=== PATIENT | female | born 1990 | race Caucasian/White ===

== ENCOUNTER 2021-07-14 22:59 | Emergency (ER) | payer OTHER ==
[~2021-07-14] VITALS: Ht 175.3 cm; Wt 65.8 kg
--- NOTE | 2021-07-14 23:10 | NUR ---
Dr. Arreola at bedside for MSE
[2021-07-14] MEDS ORDERED: NAPR-1164 PO (23:21)
--- NOTE | 2021-07-14 23:26 | NUR ---
Patient discharged to home in stable condition. Written and verbal after care instructions given. Patient verbalizes understanding of instructions. Stressed follow up or return to ER for worsening s/s. pt ambulated with steady gait. no sob. no chest pain.
[2021-07-14 23:29] VITALS: BP 120/70
== END 2021-07-14 23:29 | disposition home or self-care (01) ==
LOC: ER 23:09
DX: K04.7 Periapical abscess without sinus (principal)
CPT/HCPCS: A4663

== ENCOUNTER 2021-11-22 08:49 | Emergency (ER) | payer SELFPAY ==
[~2021-11-22] VITALS: Ht 175.3 cm; Wt 68.0 kg
[~2021-11-22 08:49] MED LIST: NAPR-1164 PO
--- NOTE | 2021-11-22 09:26 | NUR ---
Dr Quick at the bedside for MSE.
[2021-11-22 09:36] LABS: *BILIRUBIN,URIN NEGATIVE (NEGATIVE); *BLOOD, URINE NEGATIVE (NEGATIVE); *CLARITY,URINE CLEAR (CLEAR); *COLOR,URINE YELLOW (YELLOW); *KETONES,URINE NEGATIVE (NEGATIVE); LEUKOCYTE ESTERASE ,URINE NEGATIVE (NEGATIVE); NITRITE, URINE NEGATIVE (NEGATIVE); UGLUCOSE NEGATIVE (NEGATIVE)
[2021-11-22 09:40] LABS: *URINE HCG, QUAL NEGATIVE (NEGATIVE)
[2021-11-22 09:47] LABS: BACTERIA,URINE NONE SEEN /HPF (NONE SEEN); RBC,URINE 0-3 /HPF (0-3); SQUAMOUS EPITHELIAL CELL,UR FEW /HPF (NONE SEEN); WBC,URINE 0-3 /HPF (0-3)
[2021-11-22 10:07] LABS: BILIRUBIN,TOTAL 0.4 mg/dL (0.2-1.0); CREATININE 1.1 mg/dL (0.6-1.3); POTASSIUM 3.8 mmol/L (3.5-5.1); TOTAL PROTEIN, SERUM 7.6 g/dL (6.4-8.2)
[2021-11-22 10:23] LABS: MEAN CORPUSCULAR HEMOGLOBIN 26.2 uug (24.7-32.8); MEAN CORPUSCULAR VOLUME 80.6 fL (75.5-95.3); PLATELET COUNT (AUTO) 255 K/uL (179-408)
--- NOTE | 2021-11-22 10:42 | NUR ---
Pt is resting in bed,speaking on the phone, NAD noted at this time.
[2021-11-22 12:05] VITALS: BP 122/68
--- NOTE | 2021-11-22 12:05 | NUR ---
Patient discharged to home in stable condition. Written and verbal after care instructions given. Patient verbalizes understanding of instructions. Stressed follow up or return to ER for worsening s/s.
== END 2021-11-22 12:05 | disposition home or self-care (01) ==
LOC: ER 08:49
DX: R10.33 Periumbilical pain (principal); Z87.442 Personal history of urinary calculi
CPT/HCPCS: 36415; 76700; 83690; 84703; 85025; A4663